=== PATIENT | male | born 1935 | race Caucasian/White ===

== ENCOUNTER 2016-04-14 15:46 | Emergency (ER) | payer MEDICARE ==
--- NOTE | 2016-04-15 09:46 | US ---
EXTREMITY LOWER RT NON VASC COMPARISON: None HISTORY: Right leg with erythema and tenderness since a large branch fell onto his jacobs. He was started on Bactrim 04/05/2016 for possible cellulitis, but reports no benefit. No fevers. No lymphangitis. No lymphadenopathy. Pretibial soft tissue swelling and redness. Area scanned: Right lower leg pretibial region FINDINGS: Hypoechoic fluid collection up to 7.9 x 1.9 x 6.2 cm. No hypervascularity. No evidence of abscess. IMPRESSION: 1. Evidence of hematoma right pretibial region, up to 7.9 x 1.9 x 6.2 cm. This may be amenable to ultrasound-guided aspiration. The results were discussed with Mark Ramirez MD 04/14/2016 at 17:05
== END 2016-04-14 17:15 | disposition home or self-care (01) ==
LOC: ED 15:46
DX: S80.11XA Contusion of right lower leg, initial encounter (principal); M79.89 Other specified soft tissue disorders; I10 Essential (primary) hypertension; H40.9 Unspecified glaucoma; X58.XXXA Exposure to other specified factors, initial encounter